=== PATIENT | male | born 1980 | race Caucasian/White ===

== ENCOUNTER 2021-01-15 12:37 | Emergency (ER) | payer OTHER ==
[~2021-01-15] VITALS: Ht 182.9 cm; Wt 95.2 kg
[~2021-01-15 12:37] MED LIST: MOBIC15 MG PO; NORCO 7.5-3251 EACH PO; PERCOCET 5-3251 EACH PO; ULTRAM50 MG PO; [UNRECOGNIZED DRUG - OTHER]
[2021-01-15] MEDS ORDERED: PREDNISONE20 MG PO (15:21)
== END 2021-01-15 15:32 | disposition home or self-care (01) ==
LOC: ED 12:37
DX: M54.9 Dorsalgia, unspecified (principal); Z91.010 Allergy to peanuts; Z20.822 Contact with and (suspected) exposure to COVID-19
CPT/HCPCS: 71046; 80048; 85025; 85379; 99283-25; J1100; U0003